=== PATIENT | male | born 1985 | race Two or more races ===

== ENCOUNTER 2025-01-21 09:00 | Day surgery (SDC) | payer OTHER ==
[2025-01-11 13:31] VITALS: BP 137/88
[~2025-01-21] VITALS: Ht 177.8 cm; Wt 68.0 kg
[~2025-01-21 09:00] MED LIST: BUPIVACAINE HCL/MPF 0.5% 30ML VIAL ONE; CEFAZOLIN SODIUM 1,000 MG VIAL ONE
[2025-01-21] MEDS ORDERED: SUGAMMADEX SODIUM 200 MG/2 ML VIAL IV ONE (09:18)
[2025-01-21] MEDS ORDERED: KETOROLAC TROMETHAMINE 30 MG VIAL ONE (09:20)
[2025-01-21] MEDS ORDERED: KETO10TA2 PO (10:03)
[2025-01-21] MEDS ORDERED: MIRALAX17 GM PO (10:03)
[2025-01-21] MEDS ORDERED: TRAMADOL HCL50 MG PO (10:03)
[2025-01-21] MEDS ORDERED: TYLENOL ARTHRI650 MG PO (10:03)
== END 2025-01-21 13:35 | disposition home or self-care (01) ==
LOC: CIR.AMB 09:00
PROVIDERS: ATTEND Surgery
DX: K40.90 Unilateral inguinal hernia, without obstruction or gangrene, not specified as recurrent (principal)
CPT/HCPCS: 49650; C1781